=== PATIENT | female | born 1965 | race Caucasian/White ===

== ENCOUNTER 2017-07-19 11:23 | Inpatient (IN) | payer OTHER ==
[~2017-07-19 11:23] MED LIST: MULT1TAB84 PO; ZITHTAB PO
[2017-07-19 11:26] VITALS: BP 136/75; PULSE 84; RESP 16; TEMP 97.8; O2SAT 98
[2017-07-19] MEDS ORDERED: KETOROLAC TROMETHAMINE 30 MG/ML (IVP) VIAL IVP ONE (11:45)
[2017-07-19] MEDS ORDERED: AMPICILLIN-SULBACTAM INJ 3 GM in SODIUM CHLORIDE 0.9% INJ 100 ML IV ONE (11:45)
--- NOTE | 2017-07-19 11:56 | PD ---
HPI Chief Complaint: Skin Problem Time Seen by Provider: 11:43 Travel History International Travel<30 days: No Contact w/Intl Traveler<30days: No Traveled to known affect area: No History of Present Illness HPI 52-year-old female presents to the emergency room for evaluation of worsening redness and pain after a cat bit her left wrist 3 days ago. Patient states her pet cat attacked her left arm Monday night. She went to urgent care Monday morning and was prescribed Augmentin. They did not take x-rays. States she has been taking medication as prescribed but the symptoms have been worsening/ spreading. Pain is worsened with range of motion of the wrist and hand. The redness went outside the black line that the urgent care shayy. She denies any fever but reports associated nausea. She has been taking Tylenol 3 and Zofran. Only other history of depression for which she takes sertraline. Tetanus was 3 years ago. Cat is up-to-date on rabies vaccination. PCP is Dr. Downs. [facility] Past Medical History Cancer: No Cardiovascular Problems: No High Cholesterol: Yes Diabetes: No Diminished Hearing: No Diverticulitis: Yes Endocrine: No Gastrointestinal Disorders: Yes (DIVERTICULITIS) Genitourinary: No Hepatitis: No Hiatal Hernia: No Hypertension: No Immune Disorder: No Musculoskeletal: No Neurologic: No Psychiatric: No Reproductive: Yes (CURRENT ISSUES) Respiratory: Yes (asthma) Immunizations Current: Yes Thyroid Disease: No ?: Not Past Surgical History Abdominal Surgery: Yes (UMBILICAL HERNIA REP.) AICD: No Body Medical Devices: HARDWARE RIGHT SHOULDER Ear Surgery: No Eye Surgery: No Genitourinary Surgery: No Gynecologic Surgery: Yes (LEFT OVARY AND TUBE REMOVED) Joint Replacement: No Oral Surgery: No Pacemaker: No Other Surgery: Yes Social History Alcohol Use: Yes (rare) Tobacco Use: No (FORMER) Substance Use: No Allergies-Medications (Allergen,Severity, Reaction): Coded Allergies: No Known Allergies (Verified Adverse Reaction, Unknown, 07/19/17) Reported Meds & Prescriptions Reported Meds & Active Scripts Active Reported Prochlorperazine Maleate 5 Mg Tab 5 Mg PO Q6H PRN Augmentin (Amoxicillin-Clavulanate) 875-125 Mg Tab 1 Tab PO BID Sertraline (Sertraline HCl) 25 Mg Tab 25 Mg PO DAILY Review of Systems Except as stated in HPI: all other systems reviewed are Neg Physical Exam Narrative GENERAL: Well-nourished, well-developed female in no acute distress. Afebrile. Ambulatory. SKIN: Focused skin assessment warm/dry. There are 3 puncture wounds to the left volar wrist externally tender to palpation with spontaneous drainage. There is surrounding erythema but no lymphangitis. HEAD: Normocephalic. EYES: No scleral icterus. No injection or drainage. NECK: Supple, trachea midline. No JVD or lymphadenopathy. CARDIOVASCULAR: Regular rate and rhythm without murmurs, gallops, or rubs. RESPIRATORY: Breath sounds equal bilaterally. No accessory muscle use. MUSCULOSKELETAL: No cyanosis. Moderate edema of the left wrist. Limited range of motion secondary to pain and swelling. Extreme tenderness to palpation around the wound. Data Data Last Documented VS Vital Signs Date Time Temp Pulse Resp B/P (MAP) Pulse Ox O2 Delivery O2 Flow Rate FiO2 07/19/17 11:26 97.8 84 16 136/75 (95) 98 Orders Orders Complete Blood Count With Diff (07/19/17 11:43) Blood Culture (07/19/17 11:43) Wound Culture And Gram Stain (07/19/17 11:43) Iv Access Insert/Monitor (07/19/17 11:43) Ketorolac Inj (Toradol Inj) (07/19/17 11:45) Ampicillin-Sulbactam Inj (Unasyn Inj) (07/19/17 11:45) Comprehensive Metabolic Panel (07/19/17 11:43) Wrist, Limited (Ap&Lat) (07/19/17 ) Clindamycin 900 Mg/Ns Premix (Cleocin 90 (07/19/17 12:45) Admit Order (Ed Use Only) (07/19/17 12:42) Labs Laboratory Tests Test 07/19/17 12:05 White Blood Count 8.4 TH/MM3 Red Blood Count 4.09 MIL/MM3 Hemoglobin 12.1 GM/DL Hematocrit 36.3 % Mean Corpuscular Volume 88.7 FL Mean Corpuscular Hemoglobin 29.6 PG Mean Corpuscular Hemoglobin Concent 33.4 % Red Cell Distribution Width 12.9 % Platelet Count 284 TH/MM3 Mean Platelet Volume 7.9 FL Neutrophils (%) (Auto) 71.1 % Lymphocytes (%) (Auto) 18.1 % Monocytes (%) (Auto) 5.9 % Eosinophils (%) (Auto) 4.4 % Basophils (%) (Auto) 0.5 % Neutrophils # (Auto) 5.9 TH/MM3 Lymphocytes # (Auto) 1.5 TH/MM3 Monocytes # (Auto) 0.5 TH/MM3 Eosinophils # (Auto) 0.4 TH/MM3 Basophils # (Auto) 0.0 TH/MM3 CBC Comment DIFF FINAL Differential Comment Blood Urea Nitrogen 14 MG/DL Creatinine 0.65 MG/DL Random Glucose 115 MG/DL Total Protein 7.2 GM/DL Albumin 3.2 GM/DL Calcium Level 8.7 MG/DL Alkaline Phosphatase 54 U/L Aspartate Amino Transf (AST/SGOT) 13 U/L Alanine Aminotransferase (ALT/SGPT) 23 U/L Total Bilirubin 0.3 MG/DL Sodium Level 138 MEQ/L Potassium Level 4.1 MEQ/L Chloride Level 105 MEQ/L Carbon Dioxide Level 28.0 MEQ/L Anion Gap 5 MEQ/L Estimat Glomerular Filtration Rate 95 ML/MIN [facility] Medical Decision Making Medical Screen Exam Complete: Yes Emergency Medical Condition: Yes Medical Record Reviewed: Yes Differential Diagnosis Failed outpatient therapy, cellulitis, foreign body Narrative Course 52-year-old female presents to the emergency room for evaluation of worsening redness, swelling, and pain after her cat bit her 3 days ago. Cat is up-to- date on rabies vaccination. Patient is up-to-date on tetanus. She has been taking Augmentin for the past 3 days without any improvement in symptoms. Denies fevers reports associated nausea. Physical exam reveals 3 puncture wounds on the volar aspect of the left wrist that are spontaneously draining with surrounding erythema. No lymphangitis. X-ray shows no foreign body. CBC and CMP are essentially unremarkable. Patient was started on Unasyn in ED. Unasyn switched to clindamycin at attending's request. She will be admitted for IV antibiotics/failed outpatient therapy. Patient understands and agrees to plan. My attending physician, Dr. Ayala, spoke to Dr. Guerrier, who agrees to admit this patient to his service. Diagnosis Primary Impression: Cellulitis of wrist Admitting Information Admitting Physician Requests: Admit Condition: Stable Santa Pinedo Jul 19, 2017 11:56
[2017-07-19] MEDS ORDERED: SERT25TA83 PO (11:58)
[2017-07-19] MEDS ORDERED: AUGM875T3 PO (11:58)
[2017-07-19] MEDS ORDERED: PROC5TAB PO (11:58)
--- NOTE | 2017-07-19 12:07 | RADRPT ---
EXAM DATE/TIME: 07/19/2017 11:51 [facility] COMPARISON: No previous studies available for comparison. INDICATIONS : Cat bite on thumb side near wrist Monday. MEDICAL HISTORY : None. SURGICAL HISTORY : None. ENCOUNTER: Initial ACUITY: 4 - 6 days PAIN SCORE: 10/10 LOCATION: Left Wrist FINDINGS: Two view examination of the left wrist demonstrates no soft tissue swelling, dislocation, or fracture . The joint spaces are maintained. Bony mineralization is normal. No radiopaque foreign body. CONCLUSION: Unremarkable limited examination of the left wrist. Paxton Peña Jr., MD on July 19, 2017 at 12:04 Board Certified Radiologist. This report was verified electronically.
[2017-07-19 12:19] LABS: AUTOMATED NEUTROPHIL # 5.9 TH/MM3 (1.8-7.7); BASOPHIL % 0.5 % (0.0-2.0); EOSINOPHIL # 0.4 TH/MM3 (0-0.4); EOSINOPHIL % 4.4 % (0.0-4.0); HEMATOCRIT 36.3 % (35.0-46.0); HEMO FLAGS DIFF FINAL; LYMPH % 18.1 % (9.0-44.0); LYMPHOCYTE # 1.5 TH/MM3 (1.0-4.8); MEAN CELL VOLUME 88.7 FL (80.0-100.0); MEAN CORPUSCULAR HEMOGLOBIN 29.6 PG (27.0-34.0); MEAN CORPUSCULAR HGB CONC 33.4 % (32.0-36.0); MONO % 5.9 % (0.0-8.0); NEUT % 71.1 % (16.0-70.0); PLATELET COUNT 284 TH/MM3 (150-450); RED BLOOD COUNT 4.09 MIL/MM3 (4.00-5.30); RED CELL DISTRIBUTION WIDTH 12.9 % (11.6-17.2); WHITE BLOOD COUNT 8.4 TH/MM3 (4.0-11.0)
[2017-07-19 12:38] LABS: ALT (GPT) 23 U/L (10-53); ANION GAP 5 MEQ/L (5-15); AST (GOT) 13 U/L (15-37); BLOOD UREA NITROGEN 14 MG/DL (7-18); CHLORIDE 105 MEQ/L (98-107); GLOMERULAR FILTRATION RATE 95 ML/MIN (>89); POTASSIUM 4.1 MEQ/L (3.5-5.1); SODIUM (NA) 138 MEQ/L (136-145)
[2017-07-19 12:41] LABS: ALKALINE PHOSPHATASE 54 U/L (45-117); TOTAL BILIRUBIN ADULT 0.3 MG/DL (0.2-1.0)
[2017-07-19] MEDS ORDERED: MAGNESIUM HYDROXIDE SUSP 30 ML CUP PO PRN (12:45)
[2017-07-19] MEDS ORDERED: ONDANSETRON HCL 4 MG/2 ML VIAL IVP PRN (12:45)
[2017-07-19] MEDS ORDERED: SODIUM CHLORIDE 0.9% FLUSH 10 ML FLUSH IV FLUSH PRN (12:45)
[2017-07-19] MEDS ORDERED: ACETAMINOPHEN 325 MG TAB PO PRN (12:45)
[2017-07-19] MEDS ORDERED: NALOXONE HCL 0.4 MG/ML AMP IV PUSH PRN (12:45)
[2017-07-19] MEDS ORDERED: CLINDAMYCIN 900 MG/NS PREMIX 50 ML IV ONE (12:45)
--- NOTE | 2017-07-19 13:03 | HHI.HP ---
HPI Service [facility] Hospitalists Primary Care Physician Omaira Awan MD Admission Diagnosis left wrist cellulitis Chief Complaint: Bite left hand not getting better with outpatient Augmentin Travel History International Travel<30 Days: No Contact w/Intl Traveler <30 Da: No Traveled to Known Affected Are: No History of Present Illness This is a 52-year-old female patient with past medical history was includes anxiety/depression currently on sertraline. Patient reports on 07/16/2017 her cats were fighting she stuck her hand in the middle of her break them up and she is not sure if her hand got bitten or scratched. Patient saw her primary care provider and was started on Augmentin by mouth as outpatient. Patient reports the lesion is not getting better in the hand is throbbing and pain. Patient also noted to have erythema spreading beyond the previously drawn markings. Patient denies fevers chills nausea vomiting diarrhea constipation shortness of breath or chest pain Review of Systems Constitutional: DENIES: Fatigue, Fever, Chills Eyes: DENIES: Blurred vision, Diplopia, Vision loss Respiratory: DENIES: Cough, Sputum production, Shortness of breath Cardiovascular: DENIES: Chest pain, Palpitations, Dyspnea on Exertion, Lower Extremity Edema Gastrointestinal: DENIES: Abdominal pain, Constipation, Diarrhea, Nausea, Vomiting Musculoskeletal: COMPLAINS OF: Joint pain, Stiffness, Joint Swelling Integumentary: COMPLAINS OF: Abnormal pigmentation Neurologic: DENIES: Abnormal gait, Headache, Localized weakness, Speech Problems Psychiatric: DENIES: Anxiety, Confusion, Depression Past Family Social History Past Medical History Anxiety/depression Past Surgical History Denies prior surgeries Reported Medications Prochlorperazine Maleate 5 Mg Tab 5 Mg PO Q6H PRN Augmentin (Amoxicillin-Clavulanate) 875-125 Mg Tab 1 Tab PO BID Sertraline (Sertraline HCl) 25 Mg Tab 25 Mg PO DAILY Allergies: Coded Allergies: No Known Allergies (Verified Allergy, Unknown, 07/19/17) Active Ordered Medications Current Medications Medications (Trade) Dose Ordered Sig/Armen Route Start Time Stop Time Status Last Admin (NS Flush) 2 ml UNSCH PRN IV FLUSH 07/19/17 12:45 (NS Flush) 2 ml BID IV FLUSH 07/19/17 21:00 (Tylenol) 650 mg Q4H PRN PO 07/19/17 12:45 (Zofran Inj) 4 mg Q6H PRN IVP 07/19/17 12:45 (Narcan Inj) 0.4 mg UNSCH PRN IV PUSH 07/19/17 12:45 (Milk Of Magnjose Liq) 30 ml Q12H PRN PO 07/19/17 12:45 (Levaquin) 750 mg Q24H PO 07/19/17 15:00 Family History Reviewed and noncontributory Social History Rare EtOH use Denies use tobacco use or illicit drug use Physical Exam Vital Signs Vital Signs Date Time Temp Pulse Resp B/P (MAP) Pulse Ox O2 Delivery O2 Flow Rate FiO2 07/19/17 11:26 97.8 84 16 136/75 (95) 98 Physical Exam GENERAL: This is a well-nourished, well-developed patient, in no apparent distress. SKIN: Let upper extremity edema and erythema beyond markings previously drawn HEAD: Atraumatic. Normocephalic. No temporal or scalp tenderness. EYES: Extraocular motions intact. No scleral icterus. No injection or drainage. ENT: Nose without bleeding, purulent drainage or septal hematoma. Throat without erythema, tonsillar hypertrophy or exudate. Uvula midline. Airway patent. NECK: Trachea midline. No JVD or lymphadenopathy. Supple, nontender, no meningeal signs. CARDIOVASCULAR: Regular rate and rhythm RESPIRATORY: Clear to auscultation. Breath sounds equal bilaterally. GASTROINTESTINAL: Abdomen soft, non-tender, nondistended. MUSCULOSKELETAL: No calf tenderness. Negative Homans sign bilaterally. NEUROLOGICAL: Awake and alert. No focal deficits identified. Motor and sensory grossly within normal limits. Five out of 5 muscle strength in all muscle groups. Normal speech. Laboratory Laboratory Tests Test 07/19/17 12:05 White Blood Count 8.4 Red Blood Count 4.09 Hemoglobin 12.1 Hematocrit 36.3 Mean Corpuscular Volume 88.7 Mean Corpuscular Hemoglobin 29.6 Mean Corpuscular Hemoglobin Concent 33.4 Red Cell Distribution Width 12.9 Platelet Count 284 Mean Platelet Volume 7.9 Neutrophils (%) (Auto) 71.1 Lymphocytes (%) (Auto) 18.1 Monocytes (%) (Auto) 5.9 Eosinophils (%) (Auto) 4.4 Basophils (%) (Auto) 0.5 Neutrophils # (Auto) 5.9 Lymphocytes # (Auto) 1.5 Monocytes # (Auto) 0.5 Eosinophils # (Auto) 0.4 Basophils # (Auto) 0.0 CBC Comment DIFF FINAL Differential Comment Blood Urea Nitrogen 14 Creatinine 0.65 Random Glucose 115 Total Protein 7.2 Albumin 3.2 Calcium Level 8.7 Alkaline Phosphatase 54 Aspartate Amino Transf (AST/SGOT) 13 Alanine Aminotransferase (ALT/SGPT) 23 Total Bilirubin 0.3 Sodium Level 138 Potassium Level 4.1 Chloride Level 105 Carbon Dioxide Level 28.0 Anion Gap 5 Estimat Glomerular Filtration Rate 95 Date/Time Source Procedure Growth Status 07/19/17 12:05 Blood Peripheral Aerobic Blood Culture Pending Received 07/19/17 12:05 Blood Peripheral Anaerobic Blood Culture Pending Received 07/19/17 12:40 Wound Arm Gram Stain Pending Received 07/19/17 12:40 Wound Arm Wound Culture Pending Received Result Diagram: 07/19/17 1205 07/19/17 1205 Imaging Last Impressions Wrist X-Ray 07/19/17 0000 Signed Impressions: Service Date/Time: Wednesday, July 19, 2017 11:51 - CONCLUSION: Unremarkable limited examination of the left wrist. MD Ebenezer Weiss Jr. VTE Risk Assessment Caprini VTE Risk Assessment: No/Low Risk (score <= 1) Caprini Risk Assessment Model Point Value = 1 Point Value = 2 Point Value = 3 Point Value = 5 Age 41-60 Minor surgery BMI > 25 kg/m2 Swollen legs Varicose veins or History of unexplained or recurrent spontaneous Oral contraceptives or hormone replacement Sepsis (< 1 month) Serious lung disease, including pneumonia (< 1 month) Abnormal pulmonary function Acute myocardial infarction Congestive heart failure (< 1 month) History of inflammatory bowel disease Medical patient at bed rest Age 61-74 Arthroscopic surgery Major open surgery (> 45 min) Laparoscopic surgery (> 45 min) Malignancy Confined to bed (> 72 hours) Immobilizing plaster cast Central venous access Age >= 75 History of VTE Family history of VTE Factor V Leiden Prothrombin [id number] Lupus anticoagulant Anticardiolipin antibodies Elevated serum homocysteine Heparin-induced thrombocytopenia Other congenital or acquired thrombophilia Stroke (< 1 month) Elective arthroplasty Hip, pelvis, or leg fracture Acute spinal cord injury (< 1 month) Prophylaxis Regimen Total Risk Factor Score Risk Level Prophylaxis Regimen 0-1 Low Early ambulation 2 Moderate Order ONE of the following: *Sequential Compression Device (SCD) *Heparin 5000 units SQ BID 3-4 Higher Order ONE of the following medications: *Heparin 5000 units SQ TID *Enoxaparin/Lovenox 40 mg SQ daily (WT < 150 kg, CrCl > 30 mL/min) *Enoxaparin/Lovenox 30 mg SQ daily (WT < 150 kg, CrCl > 10-29 mL/min) *Enoxaparin/Lovenox 30 mg SQ BID (WT < 150 kg, CrCl > 30 mL/min) AND/OR *Sequential Compression Device (SCD) 5 or more Highest Order ONE of the following medications: *Heparin 5000 units SQ TID (Preferred with Epidurals) *Enoxaparin/Lovenox 40 mg SQ daily (WT < 150 kg, CrCl > 30 mL/min) *Enoxaparin/Lovenox 30 mg SQ daily (WT < 150 kg, CrCl > 10-29 mL/min) *Enoxaparin/Lovenox 30 mg SQ BID (WT < 150 kg, CrCl > 30 mL/min) AND *Sequential Compression Device (SCD) Assessment and Plan Problem List: (1) Cellulitis of wrist ICD Codes: L03.119 - Cellulitis of unspecified part of limb Status: Acute Plan: This is a 52-year-old female patient with past medical history was includes anxiety/depression currently on sertraline. Patient reports on 2016 her cats were fighting she stuck her hand in the middle of her break them up and she is not sure if her hand got bitten or scratched. Patient saw her primary care provider and was started on Augmentin by mouth as outpatient. Patient reports the lesion is not getting better in the hand is throbbing and pain. Patient also noted to have erythema spreading beyond the previously drawn markings. 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 Assessment and plan formulated with Valencia Cunningham PA-C. I agree with the above. Problem Qualifiers (1) Cat bite: Qualified Codes: W55.01XA - Bitten by cat, initial encounter Valencia Cunningham Jul 19, 2017 13:03 Bg Guerrier DO Jul 20, 2017 14:55
--- NOTE | 2017-07-19 13:20 | RADRPT ---
EXAM DATE/TIME: 07/19/2017 12:54 [facility] COMPARISON: No previous studies available for comparison. INDICATIONS : Cough. MEDICAL HISTORY : None. SURGICAL HISTORY : None. ENCOUNTER: Initial ACUITY: 1 day PAIN SCORE: 0/10 LOCATION: Bilateral chest FINDINGS: A single view of the chest demonstrates the lungs to be symmetrically aerated without evidence of mas s, infiltrate or effusion. The cardiomediastinal contours are unremarkable. Osseous structures are intact. CONCLUSION: No acute disease. Paxton Peña Jr., MD on July 19, 2017 at 13:17 Board Certified Radiologist. This report was verified electronically.
--- NOTE | 2017-07-19 13:54 | PD ---
Data Data Last Documented VS Vital Signs Date Time Temp Pulse Resp B/P (MAP) Pulse Ox O2 Delivery O2 Flow Rate FiO2 07/19/17 11:26 97.8 84 16 136/75 (95) 98 Orders Orders Complete Blood Count With Diff (07/19/17 11:43) Blood Culture (07/19/17 11:43) Wound Culture And Gram Stain (07/19/17 11:43) Iv Access Insert/Monitor (07/19/17 11:43) Ketorolac Inj (Toradol Inj) (07/19/17 11:45) Ampicillin-Sulbactam Inj (Unasyn Inj) (07/19/17 11:45) Comprehensive Metabolic Panel (07/19/17 11:43) Wrist, Limited (Ap&Lat) (07/19/17 ) Clindamycin 900 Mg/Ns Premix (Cleocin 90 (07/19/17 12:45) Admit Order (Ed Use Only) (07/19/17 12:42) Labs Laboratory Tests Test 07/19/17 12:05 White Blood Count 8.4 TH/MM3 Red Blood Count 4.09 MIL/MM3 Hemoglobin 12.1 GM/DL Hematocrit 36.3 % Mean Corpuscular Volume 88.7 FL Mean Corpuscular Hemoglobin 29.6 PG Mean Corpuscular Hemoglobin Concent 33.4 % Red Cell Distribution Width 12.9 % Platelet Count 284 TH/MM3 Mean Platelet Volume 7.9 FL Neutrophils (%) (Auto) 71.1 % Lymphocytes (%) (Auto) 18.1 % Monocytes (%) (Auto) 5.9 % Eosinophils (%) (Auto) 4.4 % Basophils (%) (Auto) 0.5 % Neutrophils # (Auto) 5.9 TH/MM3 Lymphocytes # (Auto) 1.5 TH/MM3 Monocytes # (Auto) 0.5 TH/MM3 Eosinophils # (Auto) 0.4 TH/MM3 Basophils # (Auto) 0.0 TH/MM3 CBC Comment DIFF FINAL Differential Comment Blood Urea Nitrogen 14 MG/DL Creatinine 0.65 MG/DL Random Glucose 115 MG/DL Total Protein 7.2 GM/DL Albumin 3.2 GM/DL Calcium Level 8.7 MG/DL Alkaline Phosphatase 54 U/L Aspartate Amino Transf (AST/SGOT) 13 U/L Alanine Aminotransferase (ALT/SGPT) 23 U/L Total Bilirubin 0.3 MG/DL Sodium Level 138 MEQ/L Potassium Level 4.1 MEQ/L Chloride Level 105 MEQ/L Carbon Dioxide Level 28.0 MEQ/L Anion Gap 5 MEQ/L Estimat Glomerular Filtration Rate 95 ML/MIN MDM Supervised Visit with DAVID: Yes Narrative Course The history, exam, and medical decision-making in the associated mid-level provider note were completed with my assistance. I reviewed and agree with the findings presented. I attest that I had a [id number] encounter with the patient on the same day, and personally performed and documented my assessment and findings in the medical record. *My assessment and Findings: 51 year-old woman, worsening soft tissue infection despite appropriate antibiotics resulting from a Bite. We'll need admission for IV antibiotics. Diagnosis Primary Impression: Cellulitis of wrist Condition: Stable James Ayala MD Jul 19, 2017 13:54
[2017-07-19 14:23] VITALS: BP 116/62; PULSE 72; RESP 19; O2SAT 97
[2017-07-19 15:18] VITALS: BP 112/55; PULSE 87; RESP 18; TEMP 96.5; O2SAT 98
[2017-07-19] MEDS ORDERED: PILL SPLITTER OTHER PRN (16:15)
[2017-07-19] MEDS: LEVOFLOXACIN 750 MG TAB PO SCH (16:26)
[2017-07-19 19:31] VITALS: BP 131/79; PULSE 77; RESP 17; TEMP 98.6; O2SAT 97
[2017-07-19] MEDS ORDERED: ACETAMINOPHEN/HYDROcodone 325 MG/5 MG TAB PO PRN (21:15)
[2017-07-19] MEDS ORDERED: HYDROmorphone HCL PF 2 MG/ML VIAL IV PUSH PRN (21:15)
[2017-07-19] MEDS: SODIUM CHLORIDE 0.9% FLUSH 10 ML FLUSH IV FLUSH SCH (22:03)
[2017-07-20] VITALS: BP 124/69; PULSE 81; RESP 16; TEMP 98.3; O2SAT 98
[2017-07-20 04:24] VITALS: BP 124/63; PULSE 77; RESP 16; TEMP 98.3; O2SAT 97
[2017-07-20 07:04] LABS: AUTOMATED NEUTROPHIL # 5.1 TH/MM3 (1.8-7.7); BASOPHIL % 0.4 % (0.0-2.0); EOSINOPHIL # 0.4 TH/MM3 (0-0.4); EOSINOPHIL % 4.7 % (0.0-4.0); HEMO FLAGS DIFF FINAL; LYMPH % 25.1 % (9.0-44.0); MEAN CELL VOLUME 88.1 FL (80.0-100.0); MEAN CORPUSCULAR HEMOGLOBIN 29.1 PG (27.0-34.0); MONO % 5.9 % (0.0-8.0); NEUT % 63.9 % (16.0-70.0); PLATELET COUNT 304 TH/MM3 (150-450); RED BLOOD COUNT 4.09 MIL/MM3 (4.00-5.30)
[2017-07-20 07:35] LABS: BICARBONATE 26.1 MEQ/L (21.0-32.0)
[2017-07-20 08:41] VITALS: BP 165/86; PULSE 81; RESP 20; TEMP 98.2; O2SAT 98
[2017-07-20] MEDS ORDERED: SERTRALINE HCL 50 MG TAB PO SCH (09:00)
[2017-07-20] MEDS: SODIUM CHLORIDE 0.9% FLUSH 10 ML FLUSH IV FLUSH SCH (10:05)
[2017-07-20 13:11] VITALS: BP 131/81; PULSE 78; RESP 18; TEMP 96.6; O2SAT 96
--- NOTE | 2017-07-20 13:35 | EKG ---
Date Performed: 07/19/2017 Time Performed: 14:20:52 PTAGE: 52 years EKG: Sinus rhythm NORMAL ECG NO PREVIOUS TRACING DOCTOR: Rashad Mathews Interpretating Date/Time 07/20/2017 13:35:13
[2017-07-20] MEDS ORDERED: LEVA750T9 PO (14:46)
[2017-07-20] MEDS ORDERED: HYDR-3516 PO (14:46)
--- NOTE | 2017-07-20 14:58 | HHI.PR ---
Subjective Remarks No new complaints. Objective Vitals Vital Signs Date Time Temp Pulse Resp B/P (MAP) Pulse Ox O2 Delivery O2 Flow Rate FiO2 07/20/17 13:11 96.6 78 18 131/81 (98) 96 07/20/17 08:41 98.2 81 20 165/86 (112) 98 07/20/17 04:24 98.3 77 16 124/63 (83) 97 07/20/17 00:50 14 07/20/17 00:00 98.3 81 16 124/69 (87) 98 07/19/17 19:31 98.6 77 17 131/79 (96) 97 07/19/17 15:18 96.5 87 18 112/55 (74) 98 Result Diagram: 07/20/1762407/20/17624 Imaging Last Impressions Wrist X-Ray 07/19/17 0000 Signed Impressions: Service Date/Time: Wednesday, July 19, 2017 11:51 - CONCLUSION: Unremarkable limited examination of the left wrist. Paxton Peña Jr., MD Objective Remarks GENERAL: This is a well-nourished, well-developed patient, in no apparent distress. CARDIOVASCULAR: Regular rate and rhythm without murmurs, gallops, or rubs. RESPIRATORY: Clear to auscultation. Breath sounds equal bilaterally. No wheezes , rales, or rhonchi. GASTROINTESTINAL: Abdomen soft, non-tender, nondistended. Normal active bowel sounds MUSCULOSKELETAL: decreased redness at left forearm, multiple small puncture wounds at left wrist and forearm with minimal surrounding erythema - improved from admission. NEURO: Alert & Oriented x4 to person, place, time, situation. Moves all ext x4 A/P Problem List: (1) Cellulitis of wrist ICD Codes: L03.119 - Cellulitis of unspecified part of limb Status: Acute Plan: This is a 52-year-old female patient with past medical history was includes anxiety/depression currently on sertraline. Patient reports on 2016 her cats were fighting she stuck her hand in the middle of her break them up and she is not sure if her hand got bitten or scratched. Patient saw her primary care provider and was started on Augmentin by mouth as outpatient. Patient reports the lesion is not getting better in the hand is throbbing and pain. Patient also noted to have erythema spreading beyond the previously drawn markings. 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 Velásquez - wound care instructions per surgery - continue levaquin 750mg x 7d total - norco prn pain, #15, no RF - Patient is up-to-date on tetanus shot 2014 per review of outpatient PCP records - Discharge to home - see discharge orders - f/u with Hand Surgeon, Dr. Velásquez, in 1 week (2) Cat bite ICD Codes: W55.01XA - Bitten by cat, initial encounter Problem Qualifiers (1) Cat bite: Qualified Codes: W55.01XA - Bitten by cat, initial encounter Bg Guerrier DO Jul 20, 2017 14:58
--- NOTE | 2017-07-20 14:59 | HHI.DCPOC ---
Discharge Care Plan Diagnosis: (1) Cellulitis of wrist (2) Cat bite Goals to Promote Your Health * To prevent worsening of your condition and complications * To maintain your health at the optimal level Directions to Meet Your Goals Take your medications as prescribed Follow your dietary instruction Follow activity as directed Keep your appointments as scheduled Take your immunizations and boosters as scheduled If your symptoms worsen call your PCP, if no PCP go to Urgent Care Center or Emergency Room Smoking is Dangerous to Your Health. Avoid second hand smoke Call the 24-hour hour crisis hotline for domestic abuse at Bg Guerrier DO Jul 20, 2017 14:59
[2017-07-20] MEDS: LEVOFLOXACIN 750 MG TAB PO SCH (15:37)
--- NOTE | 2017-07-20 18:51 | MB ---
cc: JAHAIRA WARNER MD DATE OF CONSULTATION 07/20/2017 REQUESTING PHYSICIAN The patient is being seen at the request of Dr. Bg Guerrier. REASON FOR CONSULTATION Cat bite to the left hand. HISTORY OF PRESENT ILLNESS The patient is a 52-year-old female who was bitten by two fighting cats. She sustained a bite to her left hand on Monday approximately, four days ago. The patient saw her primary care soon after the injury and was placed on Augmentin. This did not improve and the patient developed redness in her forearm. The erythema continued to spread proximally. The patient was admitted yesterday for intravenous antibiotics. 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 Consultation is requested regarding evaluation and treatment of the patient. REVIEW OF SYSTEMS Negative in detail except for abnormal pigmentation, joint pain, stiffness and swelling. PAST MEDICAL HISTORY Anxiety and depression PAST SURGICAL HISTORY Denied. MEDICATIONS On the chart. ALLERGIES No known food or drug allergies. FAMILY HISTORY Noncontributory SOCIAL HISTORY The patient denies alcohol abuse, tobacco or drug use. PHYSICAL EXAMINATION GENERAL: On examination, the patient is lying comfortably in bed. VITAL SIGNS: Temperature is 96.6, pulse 78, respirations 18, blood pressure is 131/81 and her oxygen saturation is 96 on room air. HEENT: Extraocular muscles are intact and pupils are equal, round and reactive to light. Mouth is clear. NECK: Supple without masses. LUNGS: Clear. HEART: Regular rate and rhythm. EXTREMITIES: Examination of left upper extremity reveals almost complete resolution of the redness. There are three areas of bites, one is on the thenar eminence base that measures 1.5 cm in length and appears to be completely healed. There is no fluctuance in this area. There is one 2 cm proximal to this in the area of the CMC joint. The CMC joint is nontender. There is no fluctuance in this area and there is a scab measuring 3 mm over this area. In addition, there is one dorsally which has some swelling around it. No drainage. There is again a scab. The wound is dorsally located distal to the wrist and between the two wounds, but on the dorsal side more radially consistent with a bite. There is some mild fluctuance in this area which may represent swelling. The area of swelling is approximately 8 mm in diameter. There is no significant redness outside the wound itself and outside the scabbed area which is also 3 mm in diameter. Patient has full range of motion of her hand, wrist and there is no significant tenderness in the area. LABORATORY DATA White count on admission was 8.4, today 8.0 and there is no shift, although her eosinophils are 4.7. The patient's glucose was 100 today. IMAGING STUDIES X-ray of the wrist was obtained on admission and there is no evidence of foreign bodies or any other material present. The radiologist's report shows his impression is unremarkable, limited examination of left wrist. IMPRESSION The patient has a cat bite which is resolving on a combination of Levofloxacin, clindamycin and ampicillin sulbactam. PLAN The patient is advised to continue local wound care with unroofing of the scabs as indicated, application of povidone-iodine ointment and soaking the hand. She is cleared for discharge on full antibiotics to treat the pasteurella multocida and she can follow up in my office next week. The patient is advised to continue the wound care until the wounds are completely closed. MD SYEDA Donovan/ /1:34 PM /6:16 PM SPIKE
[2017-07-20] MEDS ORDERED: POVIDONE IODINE 10% SOLN 118 ML BOTTLE TOP SCH (21:00)
[2017-07-20] MEDS ORDERED: POVIDONE IODINE 10% OINT 30 GM TUBE TOPICAL SCH (21:00)
== END 2017-07-20 16:52 | disposition home or self-care (01) | DRG 603 ==
LOC: NEPE 11:23 → NEDA 12:45 → NEPHCDU 14:56
PROVIDERS: ADMIT Hospitalist; ATTEND Hospitalist
DX: L03.114 Cellulitis of left upper limb (principal); A28.0 Pasteurellosis; F32.9 Major depressive disorder, single episode, unspecified; F41.9 Anxiety disorder, unspecified; W55.01XA Bitten by cat, initial encounter; J45.909 Unspecified asthma, uncomplicated; E78.00 Pure hypercholesterolemia, unspecified
CPT/HCPCS: 71010; 73100; 80048; 80053; 85025; 87040; 87070; 87205; 93005; 96365; 96375; J0295; J1885